=== PATIENT | female | born 1990 ===

== ENCOUNTER 2022-11-16 12:46 | Outpatient (CLI) | payer OTHER | END 2022-11-16 15:00 | disposition home or self-care (01) | LOC: PRENATAL 12:46 | PROVIDERS: ATTEND Obstetrics & Gynecology Maternal & Fetal Medicine | DX: O35.9XX0 Maternal care for (suspected) fetal abnormality and damage, unspecified, not applicable or unspecified (principal); O35.3XX0 Maternal care for (suspected) damage to fetus from viral disease in mother, not applicable or unspecified; Z3A.26 26 weeks gestation of pregnancy ==

== ENCOUNTER 2022-12-22 10:39 | Outpatient (CLI) | payer OTHER | END 2022-12-22 11:45 | disposition home or self-care (01) | LOC: PRENATAL 10:39 | PROVIDERS: ATTEND Obstetrics & Gynecology Maternal & Fetal Medicine | DX: O26.849 Uterine size-date discrepancy, unspecified trimester (principal); O36.8199 Decreased fetal movements, unspecified trimester, other fetus; O40.1XX0 Polyhydramnios, first trimester, not applicable or unspecified; Z3A.32 32 weeks gestation of pregnancy ==

== ENCOUNTER 2023-01-15 11:21 | Outpatient (CLI) | payer OTHER | END 2023-01-15 13:25 | disposition home or self-care (01) | LOC: PRENATAL 11:21 | PROVIDERS: ATTEND Obstetrics & Gynecology Maternal & Fetal Medicine | DX: O26.849 Uterine size-date discrepancy, unspecified trimester (principal); O36.8199 Decreased fetal movements, unspecified trimester, other fetus; O40.1XX0 Polyhydramnios, first trimester, not applicable or unspecified; Z3A.35 35 weeks gestation of pregnancy ==

== ENCOUNTER 2023-02-01 13:30 | Inpatient (IN) | payer OTHER ==
[~2023-02-01] VITALS: Ht 162.6 cm; Wt 79.4 kg
[2023-02-09] MEDS ORDERED: PRENATAL TABLE1 EAC1 PO (07:25)
== END 2023-02-11 14:56 | disposition home or self-care (01) | DRG 807 ==
LOC: LDR 02-09 06:02 → OB/GYN 02-09 13:30
PROVIDERS: ADMIT Specialist; ATTEND Specialist
PROC: 10E0XZZ Delivery of Products of Conception, External Approach (ICD-10-PCS; principal; 2023-02-09)
PROC: 4A1HXCZ Monitoring of Products of Conception, Cardiac Rate, External Approach (ICD-10-PCS; 2023-02-09)
DX: O80 Encounter for full-term uncomplicated delivery (principal); Z37.0 Single live birth; Z3A.39 39 weeks gestation of pregnancy; Z20.822 Contact with and (suspected) exposure to COVID-19